=== PATIENT | female | born 1990 | race Caucasian/White ===

== ENCOUNTER → 2022-01-29 | Day surgery (SDC) | payer OTHER ==
[~2022-01-29] VITALS: Ht 177.8 cm; Wt 127.0 kg
[~2022-01-29] MED LIST: ACETAMINOPHEN500 M1 PO; COLACE100 MG PO; MIRENA1 EACH VG; MOTRIN600 MG PO; OXY-IR 5MG5 MG PO; PROTONIX40 MG PO
[2022-01-29 11:38] LABS: HCG (URINE) SCREEN NEGATIVE (NEGATIVE)
[2022-01-29 12:44] LABS: ALBUMIN 4.1 g/dL (3.4-5.0); BILIRUBIN - TOTAL 0.5 mg/dL (0.2-1.0); BUN/CREAT RATIO (CALC) 12.8 RATIO; CREATININE 0.86 mg/dL (0.51-0.95); GLOBULIN (CALCULATION) 3.7 g/dL; POTASSIUM 3.9 mmol/L (3.5-5.1); TOTAL PROTEIN 7.8 g/dL (6.4-8.2)
== END | disposition home or self-care (01) ==
LOC: FAS 10:47
PROVIDERS: Student in an Organized Health Care Education/Training Program
DX: K81.1 Chronic cholecystitis (principal); K21.9 Gastro-esophageal reflux disease without esophagitis; E03.9 Hypothyroidism, unspecified; E66.9 Obesity, unspecified; Z68.41 Body mass index [BMI] 40.0-44.9, adult; Z79.899 Other long term (current) drug therapy
CPT/HCPCS: 36415; 80053; 82150; 83690; 84703; J1170; J1644; J1885; J2250; J2405; J2704; J2710; J3010; J7120